=== PATIENT | female | born 1965 | race Hispanic/Latino ===

== ENCOUNTER 2017-10-05 10:41 | Emergency (ER) | payer SELFPAY ==
[~2017-10-05] VITALS: Ht 152.4 cm; Wt 75.5 kg
[~2017-10-05 10:41] MED LIST: HYDROCHLOROT12.5 MG OR; NAPROSYN500 MG OR; NO HOME MEDS; ZESTRIL10 M1 OR
[2017-10-05] MEDS ORDERED: LOSARTAN POTASS25 MG PO (11:06)
[2017-10-05] MEDS ORDERED: OMEPRAZOLE10 MG PO (11:07)
[2017-10-05 11:57] LABS: HEMATOCRIT 42.4 % (37.0-47.0); IMMATURE GRANULOCYTES 1.1 % (0.0-5.0); MEAN CELL VOLUME 81.9 fL CALC (80.0-100.0); NEUT# 3.34 thou/uL (2.00-7.15); RED BLOOD COUNT 5.18 mill/uL (4.20-5.60)
[2017-10-05 12:21] LABS: ALBUMIN 4.5 g/dL (3.2-5.0); ALKALINE PHOSPHATASE 85 u/l (38-126); ANION GAP 13 (6-22 (CALC)); BILIRUBIN, TOTAL 0.6 mg/dL (0.0-1.4); BUN 13 mg/dL (7-17); BUN/CREATININE RATIO 22 (12-20 (CALC)); CARBON DIOXIDE 28 mmol/l (22-30); CHLORIDE 103 mmol/l (95-108); CREATININE 0.6 mg/dL (0.5-1.0); GFR > 60 ML/MIN (>=60 (CALC)); GFR FOR AFR.AMER. > 60 ML/MIN (>=60 (CALC)); POTASSIUM 4.1 mmol/l (3.5-5.1); SGOT/AST 38 u/l (14-36); SGPT/ALT 54 u/l (9-52); SODIUM 140 mmol/l (137-146); TOTAL PROTEIN 7.9 g/dL (6.3-8.2)
[2017-10-05 12:32] LABS: MYOGLOBIN 23 ng/mL (0 - 62)
[2017-10-05] MEDS ORDERED: ANTIVERT PO (13:12)
[2017-10-05] MEDS ORDERED: ZOFRAN ODT4 MG PO (13:12)
[2017-10-05 13:25] VITALS: BP 148/80
== END 2017-10-05 13:25 | disposition home or self-care (01) | DRG 149 ==
LOC: ED 10:41
PROVIDERS: Emergency Medicine
DX: R42 Dizziness and giddiness (principal); I10 Essential (primary) hypertension; R11.10 Vomiting, unspecified

== ENCOUNTER 2017-10-08 11:34 | Emergency (ER) | payer SELFPAY ==
[~2017-10-08] VITALS: Ht 152.4 cm; Wt 75.0 kg
[~2017-10-08 11:34] MED LIST changes: +ANTIVERT PO; +LOSARTAN POTASS25 MG PO; +OMEPRAZOLE10 MG PO; +ZOFRAN ODT4 MG PO
[2017-10-08 12:52] LABS: HEMATOCRIT 43.7 % (37.0-47.0); HEMOGLOBIN 14.3 g/dl (12.0-16.0); IMMATURE GRANULOCYTES 0.5 % (0.0-5.0); MEAN CELL VOLUME 81.7 fL CALC (80.0-100.0); MEAN CORPUSCULAR HGB 26.7 pG CALC (26.0-32.0); MEAN CORPUSCULAR HGB CONC 32.7 g/L CALC (32.0-36.0); NEUT# 4.35 thou/uL (2.00-7.15); RED BLOOD COUNT 5.35 mill/uL (4.20-5.60); RED CELL DISTRI WIDTH 13.9 % (11.5-15.5)
[2017-10-08 13:04] LABS: ANION GAP 15 (6-22 (CALC)); BUN 14 mg/dL (7-17); BUN/CREATININE RATIO 24 (12-20 (CALC)); CARBON DIOXIDE 28 mmol/l (22-30); CHLORIDE 100 mmol/l (95-108); CREATININE 0.6 mg/dL (0.5-1.0); GFR > 60 ML/MIN (>=60 (CALC)); GFR FOR AFR.AMER. > 60 ML/MIN (>=60 (CALC)); POTASSIUM 4.2 mmol/l (3.5-5.1); SODIUM 139 mmol/l (137-146)
[2017-10-08] MEDS ORDERED: LOSARTAN POT50 MG PO (13:25)
[2017-10-08 13:31] VITALS: BP 158/87
== END 2017-10-08 13:55 | disposition home or self-care (01) | DRG 103 ==
LOC: ED 11:34
PROVIDERS: Family Medicine
DX: R51 Headache (principal); R42 Dizziness and giddiness; I10 Essential (primary) hypertension; R11.0 Nausea

== ENCOUNTER 2020-03-14 09:36 | Inpatient (IN) | payer OTHER ==
[~2020-03-14] VITALS: Ht 152.4 cm; Wt 79.4 kg
[~2020-03-14 09:36] MED LIST changes: +LOSARTAN POT50 MG PO
--- NOTE | 2020-03-14 09:42 | NUR ---
PATIENT TO ROOM VIA WHEELCHIAR.
[2020-03-14 10:14] LABS: HEMATOCRIT 43.1 % (37.0-47.0); HEMOGLOBIN 13.9 g/dl (12.0-16.0); IMMATURE GRANULOCYTES 0.6 % (0.0-5.0); MEAN CELL VOLUME 81.8 fL CALC (80.0-100.0); MEAN CORPUSCULAR HGB 26.4 pG CALC (26.0-32.0); MEAN CORPUSCULAR HGB CONC 32.3 g/dL CAL (32.0-36.0); NEUT# 4.1 thou/uL (2.00-7.15); RED BLOOD COUNT 5.27 mill/uL (4.20-5.60); RED CELL DISTRI WIDTH 14.3 % (11.5-15.5)
[2020-03-14] MEDS ORDERED: GLIPIZIDE ER2.5 MG PO (10:27)
[2020-03-14] MEDS ORDERED: MONTELUKAST SOD10 MG PO (10:27)
[2020-03-14] MEDS ORDERED: NORVASC2.5 M1 PO (10:28)
[2020-03-14] MEDS ORDERED: VITAMIN D1000 UNI2 (10:28)
[2020-03-14] MEDS ORDERED: VITAMIN C1000 MG PO (10:28)
--- NOTE | 2020-03-14 10:32 | NUR ---
PT STATES BEING COVID + OF FOUR DAYS AGO. SHE MENTIONS HAVING SYMPTOMS BEFORE THAT BUT DECIDED TO GET TESTED THEN. PT IS HERE WITH CONCERNS OF SOB AND PAIN UPON INSPIRATION. SHE MENIONS HAVING A DRY COUGH. LUNGS SLIGHTLY DIMINISHED IN THE LOWER LUNGS JENNY AND CRACKLES HEARD IN THE MID RIGHT LUNG. PT ARRIVED WITH SPO2 AT 85%. RR WAS AT 25 AND WITH AN EFFECTIVE RYTHEM. SHE DENIES N/V AT THIS TIME. AFIBRILE. WILL CONTINUE TO MONITOR.
[2020-03-14 10:34] LABS: ALBUMIN 3.8 g/dL (3.2-5.0); ALKALINE PHOSPHATASE 73 u/l (38-126); BILIRUBIN, TOTAL 0.8 mg/dL (0.0-1.4); BUN 7 mg/dL (7-17); BUN/CREATININE RATIO 13 (12-20 (CALC)); CHLORIDE 102 mmol/l (95-108); CREATININE 0.5 mg/dL (0.5-1.0); GFR > 60 ML/MIN (>=60 (CALC)); GFR FOR AFR.AMER. > 60 ML/MIN (>=60 (CALC)); LIPASE 42 u/l (23-300); POTASSIUM 4.5 mmol/l (3.5-5.1); SGOT/AST 49 u/l (14-36); SODIUM 135 mmol/l (137-146); TOTAL PROTEIN 7.1 g/dL (6.3-8.2)
[2020-03-14 10:46] LABS: ANION GAP 16 (6-22 (CALC)); CARBON DIOXIDE 22 mmol/l (22-30)
[2020-03-14 10:47] LABS: C-REACTIVE PROTEIN 24.5 mg/dL (0-0.9)
--- NOTE | 2020-03-14 11:30 | NUR ---
PT RESTING ON STRETCHER WITH O2 INFUSING. FAMILY AT BEDSIDE. VITALS WNL AND SHE DENIES ANY NEEDS AT THIS TIME CALL LIGHT WITHIN REACH
[2020-03-14 11:32] LABS: D-DIMER 0.65 mg/L (0.19-0.60)
[2020-03-14 11:37] LABS: ACT PARTIAL THROMBO TIME 28.8 SECONDS (20.0-32.5)
--- NOTE | 2020-03-14 12:30 | NUR ---
PT IS UPDATED ON PENDING ADMISSION. PT HAD QUESTIONS AND THEY WERE ANSWERED. CALL LIGHT WITHIN REACH
--- NOTE | 2020-03-14 13:20 | NUR ---
GAVE REPORT TO RAVEN
--- NOTE | 2020-03-14 13:21 | NUR ---
REPORT RECIEVED FROM ELSA TEJADA
--- NOTE | 2020-03-14 13:44 | NUR ---
PT TRANSPORTED TO MED SURG VIA STRETCHER STABLE AND IN NO DISTRESS. CARE ASSUMED TO RAVEN Admission Note Report Given to: RAVEN Transported by: Wheelchair X Stretcher Transported with: X Nurse Transporter X Patent IV X O2 X Events Manager Location: ICU X MS2
--- NOTE | 2020-03-14 13:50 | NUR ---
PT ARRIVED TO [facility] ROOM 284 VIA STRETCHER ACCOMPAINED BY ER STAFF.INTRODUCED SELF TO PT AND DISCUSSED POC. PT IS A/OP X3. ASSESSMENT AND VITALS COMPLETED. RESPIRATIONS ARE EVEN AND UNLABORED ON 3L NC. HEART RHYTHM IS NORMLA WITH TELE IN PLACE. BOWEL SOUNDS ARE ACTIVE, LAST REPORTED BM 03/14/20. RADIAL AND PEDAL PULSES ARE STRONG. #20F IN RAC FLUSHED, SITE APPEARS HEALTHY AND OATENT. IVF STARTED PER ORDER.SKIN IS WARM/DRY/INTACT. PT DENIES OF ANY PAINS. PORTFOLIO SPECIALIST INFORMED OF TYLNEOL AND ASPIRIN ALLERGIES, ALLERGY BAND APPLIED. PT ORIENTED TO ROOM AND CALL LIGHT SYSTEM. PT DENIES OF ANY NEEDS AT THIS TIME. ALL SAFETY PRECAUTIONS ARE IN PLACE WITH CALL LIGHT IN REACH. AIR/CONTACT PRECAUTIONS ARE IN PLACE. WILL CONTINUE TO MONITOR.
[2020-03-14 13:57] VITALS: BP 132/85
--- NOTE | 2020-03-14 16:15 | NUR ---
PT RESTING IN SEMI FOWLERS POSITION. RESPIRATIONS ARE EVEN AND UNLABORED ON 3L NC. IV ANTBIOTICS INFUSING WITH EASE, SITE APPEARS HEALTHY AND PATENT. PT DENIES OF ANY PAINS OR DISCOMFORTS. ALL SAFTEY PRECAUTIONS ARE IN PLACE WITH CALL LIGHT IN REACH. WILL CONTINUE TO MONITOR
--- NOTE | 2020-03-14 19:31 | NUR ---
REPORT FROM APARNA MATHIS. ASSUMED PT CARE.
[2020-03-14 19:40] VITALS: BP 125/70
--- NOTE | 2020-03-14 21:38 | NUR ---
PT MEDICATED ORDERED. EDUCATION PROVIDED ON INSULIN AND LOVENOX INJECTIONS. DISCUSSED POC. PT VERBALIZED UNDERSTANDING. NO APPARENT DISTRESS NOTED. 02 @ 3L/M VIA NC. ALERT AND ORIENTED. PT DENIES ANY PAIN OR SOB AT THIS TIME. LEARNING ADMINISTRATOR IN PLACE. IV SITE APPEAR HEALTHY WITH IVF INFUSING. CALL LIGHT WITHIN REACH. WILL CONTINUE TO MONITOR.
[2020-03-15] VITALS (7 sets, daily range): BP systolic 113–127; BP diastolic 70–77
--- NOTE | 2020-03-15 00:01 | NUR ---
PT RESTING IN BED WITH EYES CLOSED. NO APPARENT DISTRESS NOTED. RESPIRATIONS EVEN AND UNLABORED. CALL LIGHT WITHIN REACH. WILL CONTINUE TO MONITOR.
--- NOTE | 2020-03-15 00:36 | NUR ---
PT RESTING IN BED WITH EYES CLOSED. NO APPARENT DISTRESS NOTED. RESPIRATIONS EVEN AND UNLABORED. BED ALARM FOR SAFETY. CALL LIGHT WITHIN REACH. WILL CONTINUE TO MONITOR.
[2020-03-15 05:44] LABS: HEMATOCRIT 37.8 % (37.0-47.0); HEMOGLOBIN 12.3 g/dl (12.0-16.0); IMMATURE GRANULOCYTES 0.4 % (0.0-5.0); MEAN CORPUSCULAR HGB 26.7 pG CALC (26.0-32.0); MEAN CORPUSCULAR HGB CONC 32.5 g/dL CAL (32.0-36.0); NEUT# 3.89 thou/uL (2.00-7.15); RED BLOOD COUNT 4.61 mill/uL (4.20-5.60); RED CELL DISTRI WIDTH 14.3 % (11.5-15.5)
[2020-03-15 06:10] LABS: ALBUMIN 3.1 g/dL (3.2-5.0); ALKALINE PHOSPHATASE 59 u/l (38-126); ANION GAP 12 (6-22 (CALC)); BILIRUBIN, TOTAL 0.3 mg/dL (0.0-1.4); BUN 8 mg/dL (7-17); BUN/CREATININE RATIO 19 (12-20 (CALC)); CARBON DIOXIDE 23 mmol/l (22-30); CHLORIDE 110 mmol/l (95-108); CREATININE 0.4 mg/dL (0.5-1.0); GFR > 60 ML/MIN (>=60 (CALC)); GFR FOR AFR.AMER. > 60 ML/MIN (>=60 (CALC)); POTASSIUM 4.3 mmol/l (3.5-5.1); SGOT/AST 37 u/l (14-36); SODIUM 140 mmol/l (137-146); TOTAL PROTEIN 5.9 g/dL (6.3-8.2)
[2020-03-15 06:29] LABS: C-REACTIVE PROTEIN 17.8 mg/dL (0-0.9)
--- NOTE | 2020-03-15 07:00 | NUR ---
RECIEVED REPORT FROM DELFINA PAT.
--- NOTE | 2020-03-15 07:45 | NUR ---
PT RESTING IN SEMI FOWLERS POSITION UPON ENTERING ROOM. INTRODUCED SELF TO PT AND DISCUSSED POC. PT IS A/O X3. ASSESSMENT AND VITALS COMPLETED. BP 113/77, HR 80, O2 89 ON 3L NC. INCREASED OXYGEN TO 5L NC, O2 SAT 92%. RESPIRATIONS ARE EVEN AND UNLABORED WITH NO DISTRESS NOTED. HEART RHYTHM IS NORMAL WITH TELE IN PLACE, SR PER ER MONITORING. BOWEL SOUNDS ARE ACTIVE IN ALL QUADRANTS, LAST REPORETD BM 03/14/20. RADIAL AND PEDAL PULSES STRONG.#20G IN RAC INFUSING WITH IV PER ORDER, SITE APPEARS HEALTHY AND PATENT. SKIN IS WAMR AND INTACT WITH NO BREAKDOWN NOTED.PT EDUCATED ON PRONING AND UP TO CHAIR. PT VERBALIZED UNDERSTANDING. PAPER BAG INSPECTOR ASSISTED PT UP TO CHAIR. PT DENIES OF ANY PAINS OR DISCOMFORTS AT THIS TIME. ALL SAFETY PRCAUTIONS ARE IN PLACE WITH CALL LIGHT IN REACH. AIR/CONTACT PRECAUTIONS ARE IN PLACE. WILL CONTINUE TO MONITOR.
--- NOTE | 2020-03-15 11:57 | NUR ---
PT SITTING UP IN CHAIR. RESPIRATIONS ARE EVEN AND UNLABORED ON 5L NC. IVF INFUSING PER ORDER, SITE APPEARS HEALTHY AND PATENT. TELE MONITORING IN PLACE. PT DENIES OF ANY PAINS OR DISCOMFORTS AT THIS TIME. ALL SAFTEY PRECAUTIONS ARE IN [PLACE WITHC ALL LIGHT IN REACH. WILL CONTINUE TO MONITOR
--- NOTE | 2020-03-15 14:36 | NUR ---
DR MACK AND SURJIT,ANRP AT BEDSIDE
--- NOTE | 2020-03-15 16:08 | NUR ---
PT RESTING IN SEMI FOLWERS POSITION WITH EASE CLOSED. RESPIRATIONS ARE EVEN AND UNLABORED ON 5L NC. IV ANTIBIOTICS INFUSING WITH EASE, SITE APPEARS HEALTHY AND PATENT. PT DENIES OF ANY NEEDS. ALL SAFETY PRECAUTIONS ARE IN PLACE WITH CALL LIGHT IN REACH. WILL CONTINUE TO MONITOR
--- NOTE | 2020-03-15 18:11 | NUR ---
SPOKE WITH PHARMACIST FROM [facility] REMDESIVIR NOT BEING VERIFIED. CHOCOLATE REFINING ROLLER INFORMED THAT IT WILL HAVE TO WAIT TILL IN THE MORNING FOR PT TO PROFILED BY OUR PHARMACY. DR MACK NOTIFIED.
--- NOTE | 2020-03-15 20:03 | NUR ---
PHYSICAL ASSESMENT COMPLETE. PT CURRENTLY DENIES PAIN BUT STATE SHE HAS A GENERAL FEELING OF UNWELLNESS. SCHEDULED MEDICATIONS AND PRN MEDICATION ADMINISTERED, SEE E-MAR. PT DENIES ANY NEEDS AT THIS TIME. PLAN OF CARE REVIEWED, PT DENIES QUESTIONS, VERBALIZES UNDERSTANDING. ITEMS WITHIN REACH, BED LOCKED IN LOW POSITION W/ BEDRAILS UP X2. CALL MCELROY WITHIN REACH, AGREES TO CALL PRN.
[2020-03-16] VITALS (20 sets, daily range): BP systolic 133–156; BP diastolic 61–81
--- NOTE | 2020-03-16 00:32 | NUR ---
PT LAYING IN BED WITH EYES CLOSED, APPEARS TO BE SLEEPING. PT HAS EPISODES OF COUGHING. RESPIRATIONS REGULAR AND UNLABORED ON 6 LITERS 0F 02. ITEMS REMAIN WITHIN REACH, CALL MCELROY REMAINS WITHIN REACH. BED REMAINS LOCKED AND IN LOW POSITION WITH BEDRAILS UP X2. WILL CONTINUE TO MONITOR.
--- NOTE | 2020-03-16 04:18 | NUR ---
PTS O2 SATURATION WAS 84%. RESPITORY CONTACTED. PT PLACED ON HIGH FLOW 8 LITERS. PT SATURATION IMPROVED TO 94%. WILL CONTINUE TO MONITOR.
[2020-03-16 06:15] LABS: HEMATOCRIT 37.7 % (37.0-47.0); HEMOGLOBIN 12.2 g/dl (12.0-16.0); MEAN CELL VOLUME 81.8 fL CALC (80.0-100.0); MEAN CORPUSCULAR HGB 26.5 pG CALC (26.0-32.0); MEAN CORPUSCULAR HGB CONC 32.4 g/dL CAL (32.0-36.0); RED BLOOD COUNT 4.61 mill/uL (4.20-5.60); RED CELL DISTRI WIDTH 14.4 % (11.5-15.5)
[2020-03-16 06:43] LABS: ANION GAP 10 (6-22 (CALC)); BUN 9 mg/dL (7-17); BUN/CREATININE RATIO 19 (12-20 (CALC)); CARBON DIOXIDE 24 mmol/l (22-30); CHLORIDE 110 mmol/l (95-108); CREATININE 0.5 mg/dL (0.5-1.0); GFR > 60 ML/MIN (>=60 (CALC)); GFR FOR AFR.AMER. > 60 ML/MIN (>=60 (CALC)); MAGNESIUM 2.1 mg/dL (1.6-2.3); SODIUM 140 mmol/l (137-146)
--- NOTE | 2020-03-16 07:25 | NUR ---
RECIEVED REPORT FROM ELSA DAVIS. PT RESTING IN SEMI FOWLERS. INTRODUCED SELF TO PT AND DISCUSSED POC. PT IS A/O X3. ASSESSMENT AND VITALS COMPLETED. RESPIRATIONS ARE SHALLOW. PT SAT 88# ON 11L HIGH FLOW NC. OXYGEN INCREASED TO 14L HIGH FLOW NC, PT SAT 94%. HEART RHYTHM NORMAL WITH TELE MONITORING IN PLACE. BOWEL SOUNDS ACTIVE IN ALL QUADRANTS. #20G IN RAC INFUSING WITH IVF PER ORDER, SITE APPEARS HEALTHY AND PATENT. SKIN IS WARM AND INTACT, NOT BREAK DOWN NOTED. FACE APPEARS TO BE FLUSHED. PT DENIES OF ANY PAINS OR DISCOMFORTS. ALL SAFETY AND ISOLATION PRECAUTIONS ARE IN PLACE WITH CALL LIGHT IN REACH. WILL CONTINUE TO MONITOR
--- NOTE | 2020-03-16 08:35 | NUR ---
RT AT BEDSIDE COMPLETING ABG
--- NOTE | 2020-03-16 08:40 | NUR ---
PT TO BE TRANSFERED TO ICU
--- NOTE | 2020-03-16 08:44 | NUR ---
ATTEMPTED TO CALL FOR BED. NO ANSWER. WILL TRY AGAIN.
--- NOTE | 2020-03-16 09:00 | NUR ---
PT TO BED TRANSFERED TO ICU BED 2.
--- NOTE | 2020-03-16 09:01 | NUR ---
report received from Maura Estrada LPN
--- NOTE | 2020-03-16 09:10 | NUR ---
REPORT GIVEN TO ELSA SANTOS. PT TRANSFERED TO ICU BED 2
--- NOTE | 2020-03-16 09:11 | NUR ---
female pt received from M/S to ICU bed 2 via bed accompanied by Maura Matias LPN and Milagro Rondon CNA; transfer explained; assessment completed at this time; pt alert and oriented; denies pain at current; no n/v noted; resp labored; lungs clear/ diminished bases; skin color wnl; o2 via vapotherm at 80% FiO2 and 30L; o2 sat 91%; pt admits to coughing up blood/ not observed per this scenario writer; sob noted with minimal exertion; hr reg; strong pulses; no edema noted; st on monitor; abd soft with bs present; no bm noted per scenario writer; no urine to inspect at this time; bsc; purewick offered and declined; #20 to rac with ivf infusing without complication; no redness or edema noted at site; plan of care/ meds/ remdesivir; proning explained and strongly encouraged; call light within reach; will continue to monitor
--- NOTE | 2020-03-16 09:50 | NUR ---
Dr Marcus present at bedside to assess pt and discuss plan of care
--- NOTE | 2020-03-16 10:15 | NUR ---
awake in high fowlers position; no apparent distress noted; pt offers no complanits; vapotherm intact and maintained with 80% FiO2; call light within reach; will continue to monitor
--- NOTE | 2020-03-16 10:55 | NUR ---
daughter Bess Sutherland called per this chart writer; update provided; chart writer informed daughter of medication that has been called into [facility] pharmacy and need for family to retrieve med (pay) and bring to hospital; daughter agree and will bring med shortly
--- NOTE | 2020-03-16 11:10 | NUR ---
assisted to bsc; exertional sob noted; o2 sat drop to 84%; deep breathing strongly encouraged; proposal manager writer remains with pt; assist back to bed; pt request to sit on side of bed; granted; iv intact and patent; st on monitor; vapotherm continued; will continue to monitor
--- NOTE | 2020-03-16 11:45 | NUR ---
home medication provided per family; as per pt request, davian sent home with daughter
--- NOTE | 2020-03-16 12:04 | NUR ---
awake in bed; resp less labored; vapotherm continued; iv intact and patent; no redness or edema noted at site; sr on monitor; call light within reach; will continue to monitor
--- NOTE | 2020-03-16 14:15 | NUR ---
awake; up to bsc; sob with exertion noted; iv intact and patent; no redness or edema noted at site; sr on monitor; vapotherm continued; deep breathing and proning encouraged; pt request to sit on side of bed; will continue to monitor
--- NOTE | 2020-03-16 16:08 | NUR ---
awake in bed; no acute distress noted; resp sligtly labored; iv intact and patent; no redness or edema noted at site; sr on monitor; vapotherm intact and patent; call light within reach; will continue to monitor
--- NOTE | 2020-03-16 16:48 | NUR ---
assisted to bsc; exertional sob; accucheck 262; medicated; vapotherm continues; will continue to monitor
--- NOTE | 2020-03-16 17:53 | NUR ---
pt awake in bed; assisted to bsc; pt offers no complaints; iv intact and patent; no redness or edema noted at site; sr on monitor; vapotherm intact and maintained with 80% FiO2, 30L; call light within reach; will continue to monitor
--- NOTE | 2020-03-16 19:15 | NUR ---
PATIENT IS AWAKE, ALERT AND ORIENTED X4, LAYS WITH HOB 30 DEGREES. ON VAPOTHERM 30 L/MIN, FIO2 80%, DESATS TO 80 WITH EXERTION. PIZANO SHAVE A PRODUCTIVE COUGH, BLOOD TINGED. NURSE ASSESSMENT PERFOMED, EXPLAINED AND ENCOURAGED PRONING, PATIENT WAS HESITANT BUT AGREED TO TRY IT. SR ON TELEMETRY, HR 80'S. BP WNL. RAC 20 G IV INTACT, NS AT 100 ML/HR. SELF REPOSITIONS. CALL LIGHT WITHIN REACH.
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
--- NOTE | 2020-03-16 21:12 | NUR ---
DR MACK CONTACTED FOR NEW ORDERS FOR CYCLOBENZAPRINE 10 MG AT BEDTIME, ALSO IF HE WANTED TO CONTINUE FLUIDS AND AT WHAT RATE, NEW ORDERS SENT TO [facility]. ALSO NOTIFIED CURRENT OXYGEN REQUIEREMENT AND O2 SATS.
--- NOTE | 2020-03-16 21:29 | NUR ---
PATIENT ABLE TO SWALLOW CYCLOBENZAPRINE. IV FLUIDS AT 75 ML/HR. PATIENT LAYS BACK TO PRONE POSITION. REPORTS SHE WILL ONLY BE ABLE TO DO IT INTERMITTENTLY DUE TO HER NECK PAIN.
--- NOTE | 2020-03-16 23:43 | NUR ---
PATIENT HAD USED BSC, SAT ON SIDE OF BED FOR SOME TIME, NOW BACK TO LAYING PRONE AND ASSISTED WITH POSITIONING.
[2020-03-17] VITALS (13 sets, daily range): BP systolic 122–155; BP diastolic 64–95
--- NOTE | 2020-03-17 02:11 | NUR ---
PATIENT SENIOR SERVICE TECHNICIAN LIGHT WOULD LIKE TO LAY IN FOLWER'S AFTER USING BEDSIDE COMMODE. REFUSES TO LAY PRONE. HOB NOW 30 DEGREES. WILL CONTINUE TO MONITOR.
--- NOTE | 2020-03-17 05:22 | NUR ---
PATIENT'S O2 SAT 88%-89%. LAYS IN POLLOCK'S POSITION, GOT UP TO BSC, BECOMES SOB WITH EXERTION. NOW LAYS IN HIGH POLLOCK'S. HAS PRODUCTIVE COUGH. CPC IN ROOM FOR AM LABS.
[2020-03-17 05:44] LABS: HEMATOCRIT 36.3 % (37.0-47.0); HEMOGLOBIN 11.6 g/dl (12.0-16.0); IMMATURE GRANULOCYTES 1.5 % (0.0-5.0); MEAN CELL VOLUME 81.4 fL CALC (80.0-100.0); NEUT# 5.57 thou/uL (2.00-7.15); RED BLOOD COUNT 4.46 mill/uL (4.20-5.60); RED CELL DISTRI WIDTH 14.2 % (11.5-15.5)
[2020-03-17 05:59] LABS: BUN 12 mg/dL (7-17); BUN/CREATININE RATIO 24 (12-20 (CALC)); CARBON DIOXIDE 25 mmol/l (22-30); CHLORIDE 109 mmol/l (95-108); CREATININE 0.5 mg/dL (0.5-1.0); GFR > 60 ML/MIN (>=60 (CALC)); GFR FOR AFR.AMER. > 60 ML/MIN (>=60 (CALC)); SODIUM 141 mmol/l (137-146)
[2020-03-17 06:02] LABS: ANION GAP 11 (6-22 (CALC)); POTASSIUM 3.7 mmol/l (3.5-5.1)
--- NOTE | 2020-03-17 06:14 | NUR ---
PATIENT LAYS IN HIGH POLLOCK'S O2 SAT 96%, COUGH MEDICATION PROVIDED. NO COMPLAINTS OR NEEDS AT THIS TIME.
--- NOTE | 2020-03-17 06:45 | NUR ---
REPORT RECEIVED FROM DEANGELO HUNTER. CARE ASSUMED.
--- NOTE | 2020-03-17 07:20 | NUR ---
PT IN HIGH FOWLERS POSITION AT THIS TIME. PT IS ALERT AND ORIENTED X3. SHIFT ASSESSMENT COMPLETED AT THIS TIME. IV PATENT X1. CALL LIGHT IN REACH. WILL CONTINUE TO MONITOR.
--- NOTE | 2020-03-17 07:36 | NUR ---
RT AT BEDSIDE TO PROVIDE INCENTIVE SPIROMETER AND INSTRUCTION.
--- NOTE | 2020-03-17 08:00 | NUR ---
PT UP TO RECLINER FOR AM MEAL AT THIS TIME. CALL LIGHT IN REACH. WILL CONTINUE TO MONITOR.
--- NOTE | 2020-03-17 08:33 | NUR ---
DR ERNANDEZ AT BEDSIDE AT THIS TIME.
--- NOTE | 2020-03-17 09:57 | NUR ---
PT SITTING UP IN RECLINER AT BEDSIDE. RESP ARE EVEN AND UNLABORED. VSS ON MONITOR. CALL LIGHT IN REACH. WILL CONTINUE TO MONITOR.
--- NOTE | 2020-03-17 12:00 | NUR ---
PT SITTING UP IN RECLINERAT THIS TIME. PT SET UP FOR NOON MEAL. RESP ARE EVEN AND UNLABORED. VSS ON MONITOR. CALL LIGHT IN REACH. WILL CONTINUE TO MONITOR.
--- NOTE | 2020-03-17 13:55 | NUR ---
PT SITTING UP IN RECLINER AT BEDSIDE. VSS ON [facility]. PROVIDED 1400 MEDS PER MAR. CALL LIGHT IN REACH. WILL CONTINUE TOMONITOR
--- NOTE | 2020-03-17 15:56 | NUR ---
PT RESTING UP IN RECLINER AT THIS TIME. RESP ARE EVEN AND UNLABORED. NO DISTRESS NOTED. CALL LIGHT IN REACH. WILL CONTINUE TO MONTIOR.
--- NOTE | 2020-03-17 18:04 | NUR ---
PT SITTING UP IN RECLINER EATING DINNER. RESP ARE EVEN AND UNLABORED. NO DISTRESS NOTED. CALL LIGHT IN REACH. WILL CONTINUE TO MONITOR.
--- NOTE | 2020-03-17 19:55 | NUR ---
SITTING UP IN BEDSIDE CHAIR. RESP NON-LABORED TA REST. ON VAPOTHERM FIO2 80%, LITER FLOW 30, 36 DEGREES. BREATH SOUNDS DIMINISHED THROUGHOUT. TIGHT COUGH NOTED. HANDS PUFFY AND TRACE EDEMA OF BLE. IV IN LFA, SITE BENIGN, NS INFUSING AT KVO. STENCILER SHOWS SR. DISCUSSED PLAN OF CARE. DENIES NEEDS AT THIS TIME. ENCOURAGED TO PRONE WHEN BACL TO BED. CALL MCELROY IN REACH.
--- NOTE | 2020-03-17 21:05 | NUR ---
ACCU CHECK 295, COVERED PER LOW DOSE SLIDING SCALE PROTOCOL ORDERED. HS SNACK PROVIDED.
--- NOTE | 2020-03-17 22:00 | NUR ---
RESTING IN BED. VSS. SR ON MONITOR.
[2020-03-18] VITALS (14 sets, daily range): BP systolic 128–172; BP diastolic 70–86
--- NOTE | 2020-03-18 00:10 | NUR ---
RESTING WITH EYES CLOSED. RESP SHALLOW. REMAINS ON VAPOTHERM, O2 SAT 92% VSS. SR ON MONITOR.
--- NOTE | 2020-03-18 01:47 | NUR ---
SLEEPING. VSS. O2 SAT 89% SR ON MONITOR.
--- NOTE | 2020-03-18 02:00 | NUR ---
NO CHANGES TO REPORT. VSS.
[2020-03-18 06:12] LABS: ALBUMIN 2.7 g/dL (3.2-5.0); ALKALINE PHOSPHATASE 74 u/l (38-126); ANION GAP 8 (6-22 (CALC)); BILIRUBIN, TOTAL 0.4 mg/dL (0.0-1.4); BUN 13 mg/dL (7-17); BUN/CREATININE RATIO 25 (12-20 (CALC)); CARBON DIOXIDE 26 mmol/l (22-30); CHLORIDE 106 mmol/l (95-108); CREATININE 0.5 mg/dL (0.5-1.0); GFR > 60 ML/MIN (>=60 (CALC)); GFR FOR AFR.AMER. > 60 ML/MIN (>=60 (CALC)); POTASSIUM 3.7 mmol/l (3.5-5.1); SGOT/AST 26 u/l (14-36); SODIUM 137 mmol/l (137-146); TOTAL PROTEIN 5.3 g/dL (6.3-8.2)
--- NOTE | 2020-03-18 06:15 | NUR ---
PATIENT SLEPT WELL. REMAINS ON VAPOTHERM SAME SETTINGS. NS CONTINUES AT KVO. MONITOR SR.
--- NOTE | 2020-03-18 06:45 | NUR ---
REPORT RECEIVED FROM FLOYD HUNTER. CARE ASSUMED.
--- NOTE | 2020-03-18 07:30 | NUR ---
PT RESTING IN BED AWAKE. PT IS ALERT AND ORIENTED X3. SHIFT ASSESSMENT COMPLETED AT THIS TIME. IV PATENT X1. PT ASSISTED UP TO RECLINER AT BEDSIDE. PT TOLERATED TRANSFER WELL. TITRATED O2 VAPOTHERM. PT SET UP FOR AM MEAL. CALL LIGHT IN REACH. WILL CONTINUE TO MONITOR.
--- NOTE | 2020-03-18 08:35 | NUR ---
DR ERNANDEZ AT BEDSIDE AT THIS TIME.
--- NOTE | 2020-03-18 10:15 | NUR ---
RT AT BEDSIDE TO TITRATE VAPOTHERM. RESP ARE EVEN AND UNLABORED. NO DISTRESS NOTED. CALL LIGHT IN REACH. WILL CONTINUE TOMONTIOR,.
[2020-03-18] MEDS ORDERED: IVERMECTIN3 MG PO (10:16)
--- NOTE | 2020-03-18 11:04 | NUR ---
VAPOTHERM TITRATED AT THIS TIME. 100% FIO2 8L. O2 SATS 94%. CALL LIGHT IN REACH. WILL CONTINUE TO MONITOR.
--- NOTE | 2020-03-18 12:06 | NUR ---
PT SET UP FOR NOON MEAL. VSS ON MONITOR. CALL LIGHT IN REACH. WILL CONTINUE TO MONITOR.
--- NOTE | 2020-03-18 13:16 | NUR ---
PATIENT PHONED DAUGHTER TO MAPPING TECHNICIAN IVERMECTIN FROM [employer] AND BRING TO ER TO DROP OFF. RT AT BEDSIDE TO PLACE PATIENT ON HI CHEIKH NASAL CANNULA.
--- NOTE | 2020-03-18 14:49 | NUR ---
PT SITTING UP IN RECLINER. RESP ARE EVEN AND UNLABORED. PT ON O2 5L NASAL CANNULA. VSS CALL LIGHT IN REACH. WILL CONTINUE TOMONITOR.
--- NOTE | 2020-03-18 16:00 | NUR ---
PT SITTING UP IN RECLINER AT THIS TIME. RESP ARE EVEN AND UNLABORED. NO DISTRESS NTOED. CALL LIGHT IN REACH. WILL CONTINUE TO MONITOR.
--- NOTE | 2020-03-18 18:00 | NUR ---
PT SITTING UP IN RECLINER. RESP ARE EVEN AND UNLABORED. NO DISTRESS NOTED. O2 5L NC. PT TOLERATING WELL. CALL LIGHT IN REACH. WILL CONTINUE TO MONITOR.
--- NOTE | 2020-03-18 19:45 | NUR ---
SITTING UP IN CHAIR. RESP NON-LABORED. O2 ON AT 5 L HFNC. BREATH SOUNDS DIMINISHED THROUGHOUT. O2 SAT 94% NON-PRODUCTIVE COUGH NOTED. NS INFUSING AT KVO INTO LFA IV SITE. LYMPHEDEMA THERAPIST SHOWS SR. DISCUSSED PLAN OF CARE. DENIES NEEDS TA THIS TIME. CALL MCELROY IN REACH.
--- NOTE | 2020-03-18 20:30 | NUR ---
HS ACCU CHECK 326, COVERED PER PROTOCOL.
--- NOTE | 2020-03-18 22:00 | NUR ---
RESTING QUIETLY IN BED. VSS. RESP EVEN AND UNALBORED. O2 SAT 94% SB ON MONITOR HR 40'S.
[2020-03-19] VITALS (12 sets, daily range): BP systolic 135–164; BP diastolic 66–112
--- NOTE | 2020-03-19 | NUR ---
RESTING IN BED WITH EYES CLOSED. RESP NON-LABORED. VSS.
--- NOTE | 2020-03-19 02:00 | NUR ---
SLEEPING. RESP NON-LABORED. MAINTAINING O2 SAT 92-95% ON O2 5 L HFNC. SB ON MONITOR, HR 50'S.
--- NOTE | 2020-03-19 04:00 | NUR ---
VSS. RESP SHALLOW, NON-LABORED. SR ON MONITOR.
--- NOTE | 2020-03-19 06:16 | NUR ---
SLEPT WELL. NO CHANGES TO REPORT.
[2020-03-19 06:21] LABS: HEMATOCRIT 36.8 % (37.0-47.0); IMMATURE GRANULOCYTES 4.9 % (0.0-5.0); MEAN CELL VOLUME 80.2 fL CALC (80.0-100.0); MEAN CORPUSCULAR HGB 26.1 pG CALC (26.0-32.0); MEAN CORPUSCULAR HGB CONC 32.6 g/dL CAL (32.0-36.0); NEUT# 4.18 thou/uL (2.00-7.15); RED BLOOD COUNT 4.59 mill/uL (4.20-5.60); RED CELL DISTRI WIDTH 13.9 % (11.5-15.5)
[2020-03-19 06:57] LABS: ALBUMIN 2.9 g/dL (3.2-5.0); ALKALINE PHOSPHATASE 74 u/l (38-126); ANION GAP 12 (6-22 (CALC)); BILIRUBIN, TOTAL 0.5 mg/dL (0.0-1.4); BUN 14 mg/dL (7-17); BUN/CREATININE RATIO 28 (12-20 (CALC)); C-REACTIVE PROTEIN 6.7 mg/dL (0-0.9); CARBON DIOXIDE 26 mmol/l (22-30); CHLORIDE 105 mmol/l (95-108); CREATININE 0.5 mg/dL (0.5-1.0); GFR > 60 ML/MIN (>=60 (CALC)); GFR FOR AFR.AMER. > 60 ML/MIN (>=60 (CALC)); POTASSIUM 3.6 mmol/l (3.5-5.1); SGOT/AST 24 u/l (14-36); SODIUM 140 mmol/l (137-146); TOTAL PROTEIN 5.6 g/dL (6.3-8.2)
--- NOTE | 2020-03-19 07:02 | NUR ---
PT REPORT RECEIVED FROM RN PROGRESSIVE CARE UNIT. PT LAYING ON STRETCHER, AWAKENS EASILY, ALERT/ORIENTED X3, NON PRODUCTIVE COUGH, IV FLUIDS INFUSING AT KVO, IV SITE HEALTHY, PT TURNS ON OWN EASILY, VITAL SIGNS STABLE. PT STATES FEELING BETTER FROM YESTERDAY AND SLEPT BETTER LAST NIGHT.
--- NOTE | 2020-03-19 07:38 | NUR ---
ACCUCHECK 170, 1 UNIT OF INSULIN GIVEN PER ORDER. PT TOLERTATED WELL
--- NOTE | 2020-03-19 10:18 | NUR ---
CHEST XRAY OBTAINED, AND PT SITTING UP IN BED , NO COMPLAINTS AT THIS TIME
--- NOTE | 2020-03-19 10:54 | NUR ---
ACCUCHECK 311
--- NOTE | 2020-03-19 14:08 | NUR ---
PT SITTING UP IN RECLINER, FLUIDS INFUSING, PT IS ON PHONE TALKING WITH FAMILY MEMBER. VITAL SIGNS REMAIN
--- NOTE | 2020-03-19 16:18 | NUR ---
PT REMAINS SITTING UP IN CHAIR, VITAL SIGNS THE SAME, TALKING ON PHONE TO FAMILY MEMBERS.
--- NOTE | 2020-03-19 17:39 | NUR ---
PT REMAINS SITTING UP IN RECLINER, DENIES ANY COMPLAINTS AT THIS TIME.
--- NOTE | 2020-03-19 17:51 | NUR ---
HIGH FLOW LOWERED FROM 8 -6% SATS REMAIN HIGH 90'S.
--- NOTE | 2020-03-19 19:40 | NUR ---
PATIENT IS AWAKE, ORIENTED X4, SITS IN RECLINER, SELF REPOSITIONS. ON HIGH FLOW NC AT 6.5 /MIN, WEANED TO 5.5 L/MIN, O2 SAT 95%. NO SOB NOTED. PATIENT DOES REPORT SHE FEELS BETTER. NURSE ASSESSMENT PERFORMED. NO COMPLAINTS OF PAIN. LFA 20 G IV INTACT, NS AT KVO. SR ON TELEMETRY. POC DISCUSSED. CALL LIGHT WITHIN REACH.
--- NOTE | 2020-03-19 23:00 | NUR ---
PATIENT RESTAURANT GREETER LIGHT, REQUESTED TO HAVE LIGHT TURNED OFF. NO ACUTE DISTRESS SHOWN. CALL LIGHT WITHIN REACH.
[2020-03-20] VITALS (9 sets, daily range): BP systolic 111–146; BP diastolic 60–80
--- NOTE | 2020-03-20 01:49 | NUR ---
PATIENT 95% ON 5.5 L/MIN, O2 WEANED TO 3.5 L/MIN, O2 SAT 93%. PATIENT RESTS WITH EYES CLOSED. NO ACUTE DISTRESS SHOWN.
--- NOTE | 2020-03-20 04:50 | NUR ---
PATIENT RESTS WITH EYES CLOSED. NO ACUTE DISTRESS SHOWN. O2 SAT 90%.
[2020-03-20 06:20] LABS: ALBUMIN 2.9 g/dL (3.2-5.0); ALKALINE PHOSPHATASE 67 u/l (38-126); ANION GAP 9 (6-22 (CALC)); BILIRUBIN, TOTAL 0.6 mg/dL (0.0-1.4); BUN 13 mg/dL (7-17); BUN/CREATININE RATIO 26 (12-20 (CALC)); CARBON DIOXIDE 27 mmol/l (22-30); CHLORIDE 107 mmol/l (95-108); CREATININE 0.5 mg/dL (0.5-1.0); GFR > 60 ML/MIN (>=60 (CALC)); GFR FOR AFR.AMER. > 60 ML/MIN (>=60 (CALC)); SGOT/AST 22 u/l (14-36); SODIUM 139 mmol/l (137-146); TOTAL PROTEIN 5.6 g/dL (6.3-8.2)
--- NOTE | 2020-03-20 06:57 | NUR ---
REPORT RECEIVED FROM LAND SURVEYING MANAGER. NO CHANGE FROM YESTERDAY, IV FLUIDS REMAIN INFUSING, O2 AT 3.5 LITRES SATS STAY IN MID 90'S THRU THE NIGHT. ALERT/ORIENTED X3.
--- NOTE | 2020-03-20 07:47 | NUR ---
PT ON 3.5LPM NC, SITTING IN BEDSIDE CHAIR. NO DISTRESS NOTED. VITAL SIGNS STABLE. WILL ATTEMPT TO HAVE PT WALK TODAY. CHILD AND FAMILY SERVICES SPECIALIST TO MONITOR.
--- NOTE | 2020-03-20 10:07 | NUR ---
PT SITTING UP IN RECLINER AND TALKING ON PHONE, DENIES ANY COMPLAINT AT THIS TIME.
--- NOTE | 2020-03-20 10:43 | NUR ---
CALLED FOR BED ASSIGNMENT
--- NOTE | 2020-03-20 13:13 | NUR ---
UP WALKING AROUND ROOM, SATS REMAIN IN LOW 90'S WITH EXERTION ON 3.5 LITRE OXYGEN. PT STATES FEELS MUCH BETTER THAN A COUPLE OF DAYS AGO.
--- NOTE | 2020-03-20 13:34 | NUR ---
PT OXYGEN DECREASED TO 2 LITRES PER N/C, SATS REMAIN AT 95%
--- NOTE | 2020-03-20 14:03 | NUR ---
RECIEVED REPORT FROM ELSA MERCADO.
--- NOTE | 2020-03-20 14:17 | NUR ---
PT ARRIVED TO [facility] ROOM 289 VIA WHEELCHAIR INSTABLE CONDITION ACCOMPAINED BY DELFINA NOLASCO . PT AMBULATED TO CHAIR WITH LITTLE DIFFICULTY. INTRODUCED SELF TO PT AND DISCUSSED POC. PT IS A/O X3. ASSESSMENT AND VITALS COMPLETED. RESPIRATIONS ARE EVEN AND UNLABORED ON 2L NC. HEART RHYTHM IS NORMAL. BOWEL SOUNDS ARE ACTIVE,LAST REPORTED BM 03/18/20. RADIAL AND PEDAL PULSES STRONG. #20G IN RFA INFUSING WITH IVF PER ORDER, SITE REMAINS HEALTHY AND PATENT. SKIN IS COOL AND DRY WITH NO BREAK DOWN NOTED. PT DENIES OF ANY PAINS OR DISCOMFORTS AT THIS TIME. ALL SAFETY PRECAUTIONS ARE IN PLACE WITH CALL LIGHT IN REACH. AIR/CONTACT PREACUTIONS IN PLACE. WILL CONTINUE TO MONITOR.
--- NOTE | 2020-03-20 14:19 | NUR ---
PT REPORT GIVEN TO MED SURG FOR CONTINUATION OF CARE.
--- NOTE | 2020-03-20 15:49 | NUR ---
PT RESTING IN CHAIR. RESPIRATIONS ARE EVEN AND UNLABORED ON 2L NC. PT REMAINS A/O X3. IV ANTIBIOTICS INFUSING WITH EASE, SITE APPEARS HEALTHY AND PATENT. PT DENIES OF PAINS OR DISCOMFORTS. ALL SAFETY PRECAUTIONS ARE IN PLACE. WILL CONTINUE TO MONITOR
--- NOTE | 2020-03-20 19:55 | NUR ---
RECEIVED REPORT FOR THIS PT AND IN BED WITH EYES OPEN. ABLE TO MAKE NEEDS KNOWN. SKIN WARM TO TOUCH. NO RESPIRATORY DISTRESS NOTED. DENIES PAIN AND DISCOMFORT. CALL LIGHT WITHIN REACH. WILL CONTINUE TO OBSERVE
[2020-03-21 04:00] VITALS: BP 137/78
[2020-03-21 05:22] LABS: HEMATOCRIT 39.2 % (37.0-47.0); HEMOGLOBIN 12.8 g/dl (12.0-16.0); MEAN CELL VOLUME 80.3 fL CALC (80.0-100.0); MEAN CORPUSCULAR HGB 26.2 pG CALC (26.0-32.0); MEAN CORPUSCULAR HGB CONC 32.7 g/dL CAL (32.0-36.0); NEUT# 5.45 thou/uL (2.00-7.15); RED BLOOD COUNT 4.88 mill/uL (4.20-5.60); RED CELL DISTRI WIDTH 13.9 % (11.5-15.5)
[2020-03-21 05:28] LABS: IMMATURE GRANULOCYTES 6.6 % (0.0-5.0)
[2020-03-21 06:08] LABS: ALKALINE PHOSPHATASE 63 u/l (38-126); ANION GAP 9 (6-22 (CALC)); BILIRUBIN, TOTAL 0.5 mg/dL (0.0-1.4); BUN 14 mg/dL (7-17); BUN/CREATININE RATIO 27 (12-20 (CALC)); C-REACTIVE PROTEIN 2.6 mg/dL (0-0.9); CARBON DIOXIDE 29 mmol/l (22-30); CHLORIDE 104 mmol/l (95-108); CREATININE 0.5 mg/dL (0.5-1.0); GFR > 60 ML/MIN (>=60 (CALC)); GFR FOR AFR.AMER. > 60 ML/MIN (>=60 (CALC)); SGOT/AST 20 u/l (14-36); SODIUM 138 mmol/l (137-146); TOTAL PROTEIN 5.8 g/dL (6.3-8.2)
--- NOTE | 2020-03-21 06:29 | NUR ---
PT IN BED WITH EYES CLOSED. NO S/S OF DISTRESS. MEDICATIONS GIVEN AND TOLERATED WELL. CONTINENT OF B/B AND ABLE TO TRANSFER TO TOILET WITH NO ASSIST NEEDED. OXYGEN THEAPY IN PLACE WITH NO RESPIRATORY DISTRESS NOTED. WILL CONTINUE TO OBSERVE.
[2020-03-21 08:19] VITALS: BP 108/64
--- NOTE | 2020-03-21 08:50 | NUR ---
RECIEVED REPORT FROM LISA RN. PT RESTING IN HIGHFLOWERS POSITION UPON ENTERING ROOM. INTRODUCED SELF TO PT AND DICUSSED POC. PT IS A/O X3. ASSESSMENT AND VITALS COMPLETED. REPSIRATIONS ARE EVEN AND UNLABORED ON 2L NC, PT SAT 97%. O2 REMOVED TO MONITOR. HEART RHYTHM IS NORMAL. BOWEL SOUNDS ARE ACTIVE IN ALL QUADRANTS, LAST REPORTED BM 03/20/20. RADIAL AND PEDAL PUSLES ARE STRONG. #20G IN LAC INFUSING WITH IVF KVO,SITE APPEARS HEALTHY AND PATENT. SKIN IS WARM AND DRY WITH NO BREAKDOWN NOTED. ACCU CHECK RESULTING IN 91, NO COVERAGED PT DENIES OF ANY PAINS OR DISCOMFORTS. ALL SAFTEY AND ISOLATION PRECAUTIONS ARE IN PLACE. WILL CONTINUE TO MONITOR.
--- NOTE | 2020-03-21 09:00 | NUR ---
DR CABRERA AT BEDSIDE DISCUSSING POC
--- NOTE | 2020-03-21 09:02 | NUR ---
O2 SAT DECREASED TO 89% 2L NC REAPPLIED.
--- NOTE | 2020-03-21 11:38 | NUR ---
WALK TEST COMPLETED. PT SAT 94% RESTING ON ROOM AIR. O2 86% WHILE WALKING. O2 96% RESTING ON 2L NC. RESPRIATIONS ARE EVEN AND UNLABORED. PT EDUACTED ON NEED FOR O2 WHEN DISCHARGED. PT VERBALIZED UNDERSTANDING. PT DENIES OF ANY PAINS OR DISCOMFORTS. ALL SAFETY AND ISOLATION PRECAUTIONS ARE IN PLACE. WILL COMTINUE TO MONITOR.
[2020-03-21] MEDS ORDERED: DEXAMETHASON6 MG PO (11:40)
[2020-03-21 14:55] VITALS: BP 121/65
--- NOTE | 2020-03-21 15:43 | NUR ---
PT EDUCATED ON DISCHARGED INSTRUCTIONS WITH NEW MEDS AND OXYGEN. PT VERBLAIZED UNDERSTANDING. IV REMOVED WITH CATHATER STILL INTACT. PT TOLERATED WELL. HOME O2 TO BE SENT WITH PT. PT GETTING DRESSED AT THIS TIME. WILL CONTINUE TO MONITOR
--- NOTE | 2020-03-21 15:53 | NUR ---
Discharge instructions given. Patient verbalizes understanding of same. Discharged in stable condition via Wheelchair to Home with family. All belongings sent with pt. PT DISCHARGED IN STABLE CONDITON ACCOMPAINED BY ANYA JACOBSON. PT DISCHARGED WITH ALL BELONGINGS, DISCHARGE INSTRUCTIONS AND HOME O2.
--- NOTE | 2020-03-26 14:40 | NUR ---
cOMPLETED PNEUMONIA POST DISCHARGE CALL TODAY, . Pt. states she is doing much better. She has experienced no fever, chills, excessive SOB, or fatigue since discharge. Pt. is still using O2 as needed at home. Pt. completed follow up appt. with PCP today. She obtained and took medication prescribed at discharge without issue. No questions or concerns expressed by patient. Appreciative of follow up call.
== END 2020-03-21 15:53 | disposition home or self-care (01) | DRG 177 ==
LOC: ED 09:36 → MS2 12:02 → ICU 03-16 09:11 → MS2 03-20 14:18
PROVIDERS: Internal Medicine; Nurse Practitioner; Nurse Practitioner Family; Student in an Organized Health Care Education/Training Program; ADMIT Internal Medicine; ATTEND Internal Medicine
PROC: XW033E5 Introduction of Remdesivir Anti-infective into Peripheral Vein, Percutaneous Approach, New Technology Group 5 (ICD-10-PCS; principal; 2020-03-14)
DX: U07.1 COVID-19 (principal); J12.82 Pneumonia due to coronavirus disease 2019; J96.01 Acute respiratory failure with hypoxia; I10 Essential (primary) hypertension; E11.9 Type 2 diabetes mellitus without complications; E78.5 Hyperlipidemia, unspecified; Z79.84 Long term (current) use of oral hypoglycemic drugs; Z79.899 Other long term (current) drug therapy; Z88.6 Allergy status to analgesic agent
CPT/HCPCS: J1650; Q9967